=== PATIENT | female | born 1935 | race African-American/Black ===

== ENCOUNTER 2017-01-09 23:05 | Emergency (ER) | payer MEDICARE, OTHER ==
[2017-01-09] MEDS ORDERED: Morphine Sulfate 2 MG/ML SYRINGE ONE (23:31)
[2017-01-09] MEDS ORDERED: cloNIDine HCl 0.1 MG TAB ONE (23:31)
[2017-01-09] MEDS ORDERED: Ondansetron HCl/PF 4 MG/2 ML Vial ONE (23:31)
[2017-01-09] MEDS ORDERED: Sodium Chloride 0.9% 500 ML ONE (23:31)
[2017-01-09 23:58] LABS: #Basophils 0.1 thou/uL (0.0-0.2); #Lymphocytes 2.4 thou/uL (1.20-3.40); #Monocytes 0.5 thou/uL (0.11-0.59); #Neutrophils 7.1 thou/uL (1.40-6.50); %Basophils 0.6 % (0.0-1.0); %Eosinophils 0.5 % (0.0-10.0); %Lymphocytes 23.4 % (21.0-51.0); %Monocytes 5.3 % (0.0-10.0); %Neutrophils 70.2 % (42.0-75.0); Hemoglobin 12.2 g/dL (12.0-16.0); Hypochromia SLIGHT = 6-15 cells (100X) (0-5/hpf); MDiff Complete? YES; Mean Corpuscular HGB CONC 30.1 g/dL (32.0-36.0); Mean Corpuscular Hemoglobin 22.5 pg (27.0-31.0); Mean Corpuscular Volume 74.8 fl (81.0-99.0); Mean Platelet Volume 8.8 fL (7.4-10.4); Microcytosis MODERATE=15-30 cells (100X) (0-5/hpf); PLT Morphology Comment Appears Adequate; Platelet Count 222 thou/uL (130-400); RBC Distribution Width 14.6 % (11.5-14.5); Red Blood Cell (RBC) Count 5.44 mill/uL (4.20-5.40); White Blood Cell (WBC) Count 10.1 thou/uL (4.8-10.8)
[2017-01-10] LABS: ALT (SGPT) 15 U/L (8-55); AST (SGOT) 20 U/L (5-34); Albumin 4.3 g/dL (3.4-4.8); Alkaline Phosphatase 94 U/L (40-150); Anion Gap 18 mmol/L (10-20); BUN (Urea Nitrogen) 35 mg/dL (9.8-20.1); Bilirubin, Total 0.4 mg/dL (0.2-1.2); Calc. Creatinine Clearance 0 mL/min (70-130); Calcium 10.4 mg/dL (7.8-10.44); Carbon Dioxide 21 mmol/L (23-31); Chloride 101 mmol/L (98-107); Estimated GFR-MDRD 55; Globulin 3.5 g/dL (2.4-3.5); Glucose 129 mg/dL (83-110); Lipase 12 U/L (8-78); Potassium 4.3 mmol/L (3.5-5.1); Protein, Total 7.8 g/dL (6.0-8.3); Sodium 136 mmol/L (136-145)
--- NOTE | 2017-01-10 00:12 | CT ---
EXAM: NONCONTRAST HEAD CT 01/09/17 HISTORY: Headache. COMPARISON: None. TECHNIQUE: Noncontrast head CT is performed from skull base to skull vertex. FINDINGS: No parenchymal hemorrhage. No extra-axial hematoma. No midline shift. Basilar cisterns are patent. Age appropriate atrophy. Cortical anaya-white matter differentiation is preserved. White matter hypodensities involving the bilateral coronal radiata and centrum semiovale are nonspec ific and are presumed to be due to chronic small vessel ischemic changes. Adequate aeration of the sinuses and mastoid air cells. There is cavernous carotid atherosclerosis. Calvarium is intact. IMPRESSION: No acute intracranial process. POS: [facility]
[2017-01-10 00:54] LABS: Bilirubin Negative (Negative); Blood, Urine Negative (Negative); Clarity Clear (Clear); Glucose, Urine (Dipstick) Negative (Negative); Leukocyte Trace (Negative); Nitrite Negative (Negative); Protein, Urine (Dipstick) Negative (Neg-Trace); Specific Gravity, Urine 1.015 (1.005-1.030); Urobilinogen 0.2 mg/dL (0.2-1.0)
[2017-01-10 00:58] LABS: RBC/HPF None Seen HPF (0-3); WBC/HPF 0-3 HPF (0-3)
[2017-01-10 00:59] LABS: Bacteria/HPF None Seen HPF (None Seen)
[2017-01-10] MEDS ORDERED: Ibuprofen 200 MG TAB ONE (01:02)
[2017-01-10] MEDS ORDERED: cloNIDine HCl 0.1 MG TAB ONE (01:02)
[2017-01-10] MEDS ORDERED: Ondansetron ODT 4 MG TAB ONE (02:08)
== END 2017-01-10 02:15 | disposition home or self-care (01) ==
LOC: NAV ERS 23:05
DX: I10 Essential (primary) hypertension (principal); E03.9 Hypothyroidism, unspecified; I48.91 Unspecified atrial fibrillation; K21.9 Gastro-esophageal reflux disease without esophagitis; E78.5 Hyperlipidemia, unspecified; M19.90 Unspecified osteoarthritis, unspecified site; J45.909 Unspecified asthma, uncomplicated; F41.9 Anxiety disorder, unspecified; F32.9 Major depressive disorder, single episode, unspecified; Z79.82 Long term (current) use of aspirin; Z79.899 Other long term (current) drug therapy
CPT/HCPCS: 70450; 80053; 81003; 81015; 83690; 85025; 96361; 96374; 96375; J2270; J2405; J7050; Q0162

== ENCOUNTER 2017-08-04 12:47 | Outpatient (CLI) | payer MEDICARE, OTHER ==
--- NOTE | 2017-08-04 13:45 | RAD ---
LEFT HIP TWO VIEWS: HISTORY: Arthritis. Left hip pain. FINDINGS: There is joint space narrowing, osteophytosis, and subchondral sclerosis. Mild irregularity of the a rticular surface of the femoral head is apparent. No acute fracture, dislocation, or aggressive osse ous erosions. IMPRESSION: Moderate to severe osteoarthritic changes, left hip. POS: [facility]
== END 2017-08-04 12:48 | disposition home or self-care (01) ==
LOC: NAV RAD 12:47
PROVIDERS: ATTEND Internal Medicine
DX: M05.741 Rheumatoid arthritis with rheumatoid factor of right hand without organ or systems involvement (principal); M16.12 Unilateral primary osteoarthritis, left hip

== ENCOUNTER 2017-12-13 12:48 | Outpatient (CLI) | payer MEDICARE, OTHER ==
--- NOTE | 2017-12-13 14:44 | RAD ---
THREE VIEWS LUMBAR SPINE: HISTORY: Low back pain radiating down to hip. FINDINGS: AP, lateral, and coned-down views of lumbar spine obtained. Images demonstrate disk space height loss with anterior osteophytes involving the T12-L1, L1-2, L2-3 levels. There is retrolisthesis of L3 on L4. Disk space height loss and vacuum disk changes are als o seen at L3-4. Vacuum disk changes are also seen at L5-S1. The patient has had extensive L4 and L5 laminectomies. Atherosclerosis calcification of the abdominal aorta is seen. Also noted are bilateral hip degenerative changes with articulating cartilage loss bilaterally with s ubchondral cysts seen in both femoral heads. IMPRESSION: Multilevel lumbar degenerative changes with no evidence of acute lumbar spine abnormality seen. POS: [facility]
== END 2017-12-13 12:49 | disposition home or self-care (01) ==
LOC: NAV RAD 12:48
PROVIDERS: ATTEND Internal Medicine
DX: M47.896 Other spondylosis, lumbar region (principal)
CPT/HCPCS: 72100

== ENCOUNTER 2018-06-29 11:39 | Emergency (ER) | payer MEDICARE, OTHER ==
[2018-06-29 12:26] LABS: Anion Gap 16 mmol/L (10-20); BUN (Urea Nitrogen) 17 mg/dL (9.8-20.1); Calc. Creatinine Clearance 0 mL/min (70-130); Calcium 10.5 mg/dL (7.8-10.44); Carbon Dioxide 23 mmol/L (23-31); Chloride 103 mmol/L (98-107); Estimated GFR-MDRD 67; Glucose 143 mg/dL (83-110); Potassium 3.9 mmol/L (3.5-5.1); Sodium 138 mmol/L (136-145)
== END 2018-06-29 12:52 | disposition home or self-care (01) ==
LOC: NAV ERS 11:39
DX: I10 Essential (primary) hypertension (principal); I48.91 Unspecified atrial fibrillation; E03.9 Hypothyroidism, unspecified; K21.9 Gastro-esophageal reflux disease without esophagitis; M19.90 Unspecified osteoarthritis, unspecified site; F41.9 Anxiety disorder, unspecified; F32.9 Major depressive disorder, single episode, unspecified; Z86.718 Personal history of other venous thrombosis and embolism; Z79.891 Long term (current) use of opiate analgesic; Z79.1 Long term (current) use of non-steroidal anti-inflammatories (NSAID); Z79.899 Other long term (current) drug therapy; Z79.82 Long term (current) use of aspirin
CPT/HCPCS: 80048; 84484; 93005

== ENCOUNTER 2018-07-15 13:48 | Observation (INO) | payer MEDICARE, OTHER ==
[2018-07-15] MEDS ORDERED: [UNRECOGNIZED DRUG - OTHER] PO PRN (14:42)
[2018-07-15 16:13] LABS: #Basophils 0.1 thou/uL (0.0-0.2); #Eosinphils 0.2 thou/uL (0.0-0.7); #Monocytes 0.6 thou/uL (0.11-0.59); #Neutrophils 5.3 thou/uL (1.40-6.50); %Basophils 1.2 % (0.0-1.0); %Eosinophils 2.6 % (0.0-10.0); %Lymphocytes 32.3 % (21.0-51.0); %Monocytes 6.8 % (0.0-10.0); %Neutrophils 57.1 % (42.0-75.0); Hemoglobin 13.2 g/dL (12.0-16.0); Mean Corpuscular HGB CONC 29.8 g/dL (32.0-36.0); Mean Corpuscular Hemoglobin 23.1 pg (27.0-31.0); Mean Corpuscular Volume 77.6 fL (78.0-98.0); Mean Platelet Volume 8.4 fL (7.4-10.4); Platelet Count 248 thou/uL (130-400); RBC Distribution Width 13.3 % (11.5-14.5); Red Blood Cell (RBC) Count 5.73 mill/uL (4.20-5.40); White Blood Cell (WBC) Count 9.2 thou/uL (4.8-10.8)
[2018-07-15] MEDS: HYDROcodone/Acetaminophen 10/325 mg Tablet PO PRN (16:25)
[2018-07-15] MEDS: cloNIDine 0.1 MG TAB PO PRN (17:28)
[2018-07-15 18:04] LABS: ALT (SGPT) 15 U/L (8-55); AST (SGOT) 22 U/L (5-34); Albumin 4.4 g/dL (3.4-4.8); Alkaline Phosphatase 107 U/L (40-150); Anion Gap 20 mmol/L (10-20); BUN (Urea Nitrogen) 19 mg/dL (9.8-20.1); Bilirubin, Total 0.6 mg/dL (0.2-1.2); Calc. Creatinine Clearance 65 mL/min (70-130); Calcium 10.2 mg/dL (7.8-10.44); Carbon Dioxide 20 mmol/L (23-31); Chloride 104 mmol/L (98-107); Estimated GFR-MDRD 66; Globulin 3.3 g/dL (2.4-3.5); Glucose 100 mg/dL (83-110); Potassium 5.9 mmol/L (3.5-5.1); Protein, Total 7.7 g/dL (6.0-8.3); Sodium 138 mmol/L (136-145)
[2018-07-15] MEDS ORDERED: Cyclobenzaprine 10 MG TAB PO PRN (18:07)
[2018-07-15] MEDS ORDERED: Montelukast Sodium 10 mg Tablet PO PRN (18:07)
[2018-07-15] MEDS ORDERED: Nitroglycerin 0.4 MG TAB (25 Tab Bottle) SL PRN (18:07)
[2018-07-15] MEDS ORDERED: DICLOFENAC SODIUM 1% TOP PRN (18:07)
[2018-07-15 18:27] VITALS: BMI 33.0
[2018-07-15] MEDS: Temazepam 15 MG CAP PO SCH (21:46)
[2018-07-15] MEDS: Ibuprofen 200 MG TAB PO SCH (21:46)
[2018-07-15 22:27] LABS: Bilirubin Negative (Negative); Blood, Urine Trace (Negative); Clarity Clear (Clear); Glucose, Urine (Dipstick) Negative (Negative); Leukocyte Negative (Negative); Nitrite Negative (Negative); Protein, Urine (Dipstick) Negative (Neg-Trace); Urobilinogen 0.2 mg/dL (0.2-1.0); pH, Urine 5.5 (5.0-9.0)
[2018-07-15 22:39] LABS: Bacteria/HPF None Seen HPF (None Seen); RBC/HPF 0-3 HPF (0-3); WBC/HPF None Seen HPF (0-3)
[2018-07-16] MEDS: HYDROcodone/Acetaminophen 10/325 mg Tablet PO PRN ×2 (02:49→17:45)
[2018-07-16] MEDS ORDERED: Fluticasone Propionate Nasal Spray 16 gm Bottle NASAL SCH (09:00)
[2018-07-16] MEDS ORDERED: Latanoprost 0.005% Ophth Soln 2.5 ml Bottle EA EYE SCH ×2 (09:00→21:00)
[2018-07-16] MEDS ORDERED: Nebivolol HCl 2.5 MG TAB PO SCH (09:00)
--- NOTE | 2018-07-16 09:25 | PRG ---
DATE OF SERVICE: 07/16/2018 Ms. Peoples is a very pleasant 83-year-old black female, who was seen for evaluation of severe intractable back pain. She was admitted to the hospital with also blood pressure uncontrolled. Apparently, her back has been bothering for several days, but has gotten increasingly worse, where she states she just cannot stand it anymore. She was evaluated, admitted to the hospital under observations for control of her blood pressure and her back pain. SUBJECTIVE: The patient states she feels much better this morning. Her back pain is somewhat better and she has significant relief. She is not completely well and her blood pressure is much improved. OBJECTIVE: VITAL SIGNS: This morning reveal, blood pressure 145/64, last night it was 208/104; pulse 70 to 86, respirations 18 to 19, O2 saturation 98% to 99%, T-max 98.3. GENERAL: This is a well-developed, well-nourished, very pleasant black female, in no apparent distress at this time. HEENT: Reveals normocephalic and nontraumatic cranium. The pupils were equally round and reactive. Extraocular movements are intact. Nose and throat are slightly dry, but clear. NECK: Supple without masses, nodes, or bruits. CHEST: Clear to auscultation. No rales or rhonchi. No wheezes are heard. HEART: Reveals a regular rate and rhythm without murmurs, gallops, or rubs. ABDOMEN: Soft, nontender without organomegaly. Normal bowel sounds are noted. No rebound or guarding is noted. : Exam is deferred. EXTREMITIES: Revealed no clubbing, cyanosis, or edema. NEUROLOGIC: The patient is oriented to person, place, and time. ASSESSMENT: 1. Hypertension, out of control. 2. Severe intractable back pain. 3. Rheumatoid arthritis. 4. Hyperlipidemia. 5. Muscle spasms. 6. Allergic rhinitis. 7. Hypothyroidism. 8. Osteoarthritis. 9. Pain management. PLAN: The patient will continue present course of therapy. If she continues to do well, blood pressure is under control and she has controllable back pain, we will discharge her tomorrow. Job ID: [id number]
[2018-07-16] MEDS: Multivitamin W/ Minerals 1 TAB PO SCH (09:37)
[2018-07-16] MEDS: Folic Acid 1 MG TAB PO SCH (09:37)
[2018-07-16] MEDS: Nebivolol HCl 2.5 MG TAB PO SCH ×2 (09:37→21:13)
[2018-07-16] MEDS: Ibuprofen 200 MG TAB PO SCH ×3 (09:37→21:13)
[2018-07-16] MEDS: Aspirin 81 mg Enteric Coated Tablet PO SCH (09:38)
[2018-07-16] MEDS: Meloxicam 7.5 MG TAB PO SCH (09:38)
[2018-07-16] MEDS: AZILSARTAN MEDOXOMIL PO SCH (09:40)
[2018-07-16] MEDS ORDERED: Fluticasone Propionate Nasal Spray 16 gm Bottle NASAL PRN (09:56)
[2018-07-16] MEDS ORDERED: Levothyroxine Sodium 100 MCG TAB PO SCH (10:00)
[2018-07-16] MEDS: cloNIDine 0.1 MG TAB PO PRN (17:46)
[2018-07-16] MEDS ORDERED: Atorvastatin Calcium 10 MG TAB PO SCH (21:00)
[2018-07-16] MEDS: Temazepam 15 MG CAP PO SCH (21:15)
[2018-07-17] MEDS: HYDROcodone/Acetaminophen 10/325 mg Tablet PO PRN ×2 (03:08→17:16)
[2018-07-17] MEDS ORDERED: Levothyroxine Sodium 100 MCG TAB PO SCH (06:00)
[2018-07-17] MEDS: Aspirin 81 mg Enteric Coated Tablet PO SCH (09:14)
[2018-07-17] MEDS: Multivitamin W/ Minerals 1 TAB PO SCH (09:14)
[2018-07-17] MEDS: Meloxicam 7.5 MG TAB PO SCH (09:15)
[2018-07-17] MEDS: Ibuprofen 200 MG TAB PO SCH ×2 (09:15→15:03)
[2018-07-17] MEDS: Folic Acid 1 MG TAB PO SCH (09:15)
[2018-07-17] MEDS: AZILSARTAN MEDOXOMIL PO SCH (09:17)
[2018-07-17] MEDS: Nebivolol HCl 2.5 MG TAB PO SCH (09:26)
[2018-07-17 17:16] VITALS: BP 139/64; TEMP 97.4
[2018-07-17] MEDS: cloNIDine 0.1 MG TAB PO PRN (17:18)
--- NOTE | 2018-07-18 07:14 | DIS ---
DATE OF ADMISSION: 07/15/2018 DATE OF DISCHARGE: 07/17/2018 SUBJECTIVE: This is an 83-year-old black female, who was admitted to [facility] for intractable back pain. She was admitted to the hospital and also noted to have uncontrolled blood pressure. Apparently, she ran out of her clonidine. She was admitted and placed on [place] and actually did very well. Her clonidine was one pill every evening and that has done very well. She has reached maximum observation benefit and is ready for discharge today. The patient does not have the ability to get her medications today, so she states she will stay here until about 6 p.m. At that time, she will get her clonidine and her pain medication, and her medicines both clonidine and her [place] have been sent via [facility] to [facility]. Her daughter can pick it up on Wednesday morning. Subjectively, the patient states she actually feels much better this morning. Her blood pressure is excellent. PHYSICAL EXAMINATION: VITAL SIGNS: Reveal blood pressure this morning 124/58, pulse 73 to 82, respirations 18, O2 saturation 96% to 98%, T-max 98.0. GENERAL: This is a well-developed, well-nourished, very pleasant, black female, in no apparent distress at this time. HEENT: Reveals normocephalic and nontraumatic cranium. Pupils are equally, round, and reactive. Extraocular movements are intact. Nose and throat are slightly dry. NECK: Supple without masses, nodes, or bruits. CHEST: Clear to auscultation. No rales, rhonchi, wheezes, or cough is heard. HEART: Reveals a regular rate and rhythm without murmurs, gallops, or rubs. ABDOMEN: Soft, nontender without organomegaly. Normal bowel sounds are noted in all four quadrants. : Deferred. EXTREMITIES: Reveal no clubbing, cyanosis, or edema. NEUROLOGIC: The patient is oriented to person, place, and time. The patient's daughter is in the room and she did agree that she would like her mom to stay until about 6 o'clock, so she can get her medications and eat supper and then be discharged. ASSESSMENT: 1. Hypertension, much improved control with the addition of clonidine 0.1 mg every evening. 2. Intractable back pain, much improved with the addition of [place] 10 one pill twice a day. 3. Rheumatoid arthritis. 4. Hyperlipidemia. 5. Muscle spasm. 6. Allergic rhinitis. 7. Hypothyroidism. 8. Osteoarthritis. 9. Pain management. PLAN: The patient has actually done very well. She is being discharged from observation at this time. She will contact Dr. Benítez's office. Dr. Benítez was indicated that he has a referral in for her to go see a Pain Management doctor. She will continue to follow up with Dr. Benítez. I did send a prescription for [place] , #14 pills one every 12 hours p.r.n. severe back pain with no refills. I did send a clonidine 0.1 mg prescription to [facility] with 30 pills. The patient is to take one every afternoon when her blood pressure goes up. The patient will follow up with Dr. Benítez within a week or two. I spent more than 30 minutes discharging this patient. Job ID: [id number]
[2018-07-25] MEDS ORDERED: Methotrexate Sodium 2.5 MG TAB PO SCH (09:00)
== END 2018-07-17 16:15 | disposition home or self-care (01) ==
LOC: NAV ACUTE 13:48
PROVIDERS: ADMIT Internal Medicine; ATTEND Internal Medicine
DX: M54.9 Dorsalgia, unspecified (principal); I10 Essential (primary) hypertension; M06.9 Rheumatoid arthritis, unspecified; E78.5 Hyperlipidemia, unspecified; E03.9 Hypothyroidism, unspecified; M19.90 Unspecified osteoarthritis, unspecified site; J30.9 Allergic rhinitis, unspecified; Z88.0 Allergy status to penicillin; Z79.1 Long term (current) use of non-steroidal anti-inflammatories (NSAID); Z79.899 Other long term (current) drug therapy
CPT/HCPCS: 36415; 80053; 81001; 85025; G0378; G0379

== ENCOUNTER 2018-10-26 12:03 | Emergency (ER) | payer MEDICARE, OTHER ==
[2018-10-26 12:49] LABS: #Basophils 0.1 thou/uL (0.0-0.2); #Eosinphils 0.3 thou/uL (0.0-0.7); #Lymphocytes 2.7 thou/uL (1.20-3.40); #Monocytes 0.7 thou/uL (0.11-0.59); #Neutrophils 3.8 thou/uL (1.40-6.50); %Basophils 1.4 % (0.0-1.0); %Eosinophils 3.4 % (0.0-10.0); %Lymphocytes 35.9 % (21.0-51.0); %Monocytes 9.4 % (0.0-10.0); %Neutrophils 49.9 % (42.0-75.0); ALT (SGPT) 12 U/L (8-55); AST (SGOT) 21 U/L (5-34); Albumin 4.1 g/dL (3.4-4.8); Alkaline Phosphatase 114 U/L (40-150); Anion Gap 15 mmol/L (10-20); BUN (Urea Nitrogen) 25 mg/dL (9.8-20.1); Bilirubin, Total 0.4 mg/dL (0.2-1.2); Calc. Creatinine Clearance 0 mL/min (70-130); Carbon Dioxide 22 mmol/L (23-31); Chloride 106 mmol/L (98-107); Estimated GFR-MDRD 58; Globulin 3.3 g/dL (2.4-3.5); Glucose 123 mg/dL (83-110); Hemoglobin 12.5 g/dL (12.0-16.0); Mean Corpuscular HGB CONC 29.4 g/dL (32.0-36.0); Mean Corpuscular Hemoglobin 22.8 pg (27.0-31.0); Mean Corpuscular Volume 77.5 fL (78.0-98.0); Mean Platelet Volume 9.2 fL (7.4-10.4); Platelet Count 271 thou/uL (130-400); Potassium 4.8 mmol/L (3.5-5.1); Protein, Total 7.4 g/dL (6.0-8.3); Red Blood Cell (RBC) Count 5.48 mill/uL (4.20-5.40); Sodium 138 mmol/L (136-145); White Blood Cell (WBC) Count 7.6 thou/uL (4.8-10.8)
[2018-10-26 12:55] LABS: Hypochromia SLIGHT = 6-15 cells (100X) (0-5/hpf); MDiff Complete? YES; Platelet Morphology Comment Appears Adequate
[2018-10-26] MEDS ORDERED: cloNIDine 0.2 MG TAB ONE (13:02)
--- NOTE | 2018-10-26 13:02 | RAD ---
Chest one view HISTORY: Dyspnea. FINDINGS: Cardiac silhouette is unremarkable. Pulmonary vasculature upper limits of normal. Mediastin um is midline. No lobar consolidation or evidence of pneumothorax. monitoring analyst leads overlie the chest. There are degenerative changes of the right shoulder. IMPRESSION: No active cardiopulmonary abnormalities are demonstrated.
[2018-10-26 15:27] LABS: Troponin I Less than 0.010 ng/mL (< 0.028)
== END 2018-10-26 16:13 | disposition home or self-care (01) ==
LOC: NAV ERS 12:03
DX: I16.0 Hypertensive urgency (principal); I25.10 Atherosclerotic heart disease of native coronary artery without angina pectoris; I48.91 Unspecified atrial fibrillation; E03.9 Hypothyroidism, unspecified; K21.9 Gastro-esophageal reflux disease without esophagitis; D50.9 Iron deficiency anemia, unspecified; E78.5 Hyperlipidemia, unspecified; I10 Essential (primary) hypertension; J45.909 Unspecified asthma, uncomplicated; Z86.718 Personal history of other venous thrombosis and embolism; F41.9 Anxiety disorder, unspecified; F32.9 Major depressive disorder, single episode, unspecified; Z79.51 Long term (current) use of inhaled steroids; Z79.82 Long term (current) use of aspirin; Z79.899 Other long term (current) drug therapy
CPT/HCPCS: 36415; 71045; 80053; 83880; 84484; 85025; 93005

== ENCOUNTER 2018-12-20 12:26 | Outpatient (CLI) | payer MEDICARE, OTHER ==
--- NOTE | 2018-12-20 13:42 | ULT ---
CAROTID DOPPLER: INDICATION: Carotid bruit on the left. FINDINGS: Ultrasound Doppler study is performed of the extracranial carotid arteries. Color Doppler with spect ral analysis and velocity recordings obtained. FINDINGS: The ultrasound images show echogenic plaque in both bulbs and proximal ICAs. Velocities are increased in the right ICA at 166 cm/s systolic. Left ICA velocities are upper normal at 109 cm/s systolic. Vertebral show antegrade flow. IMPRESSION: 1. Moderate echogenic plaque in both bulb regions. 2. Evidence of hemodynamically significant stenosis in the proximal right internal carotid artery. Recommend further evaluation with CTA neck for better characterization. POS: [facility]
== END 2018-12-20 12:27 | disposition home or self-care (01) ==
LOC: NAV ULT 12:26
PROVIDERS: ATTEND Internal Medicine
DX: R09.89 Other specified symptoms and signs involving the circulatory and respiratory systems (principal); I65.23 Occlusion and stenosis of bilateral carotid arteries
CPT/HCPCS: 93880

== ENCOUNTER 2018-12-30 09:08 | Outpatient (CLI) | payer MEDICARE, OTHER ==
[~2018-12-30 09:08] MED LIST: Iopamidol 300 61% 100 ML VIAL FS ONE
--- NOTE | 2018-12-30 12:02 | CT ---
NONCONTRAST HEAD CT CT ANGIOGRAM OF THE HEAD: HISTORY: Carotid occlusion. COMPARISON: None. TECHNIQUE: CT angiogram of the head is performed in the axial plane. Three-dimensional reformatted images are wilde bmitted for dictation. Noncontrast head CT is performed in the axial plane. FINDINGS: NONCONTRAST HEAD CT: No parenchymal hemorrhage. No extra-axial hematoma. No midline shift. Basilar cisterns are patent. Br ain volume, age-appropriate. Cortical anaya-white white matter differentiation is preserved. No hydrocephalus. White matter hypodensities due to chronic small vessel ischemic change. Calvarium is intact. Adequate aeration of the sinuses and mastoid air cells. No pathologic enhancement of the brain parenchyma. CT ANGIOGRAM: The visualized distal cervical internal carotid arteries are patent and symmetric. There is atheroscl erosis in bilateral cavernous and paraclinoid segments without evidence of high-grade stenosis. Anterior circulation: Symmetric enhancement and luminal diameter of the A1 and proximal A2 segments. The right and left M1 segments have appropriate enhancement and luminal diameter. Proximal MCA branches are essentially symmetric. Posterior circulation: Atherosclerosis of both intracranial vertebral arteries. Limited evaluation of PICA artery origin. Lázaro th vertebral arteries supply a normal caliber basilar artery. Left and right P1 segments have symmetric enhancement and luminal diameter IMPRESSION: 1. No evidence of significant stenosis at the level of the z[place] of [place]. 2. Atherosclerosis involving the intracranial vertebral and carotid arteries as described above. No e vidence of associated significant stenosis beyond these areas of atherosclerotic disease. Transcribed Date/Time: 12/30/2018 12:21 PM
== END 2018-12-30 09:09 | disposition home or self-care (01) ==
LOC: NAV CT 09:08
PROVIDERS: ATTEND Internal Medicine
DX: I65.21 Occlusion and stenosis of right carotid artery (principal); I65.03 Occlusion and stenosis of bilateral vertebral arteries
CPT/HCPCS: 36415; 70496; 82565; Q9967

== ENCOUNTER 2019-04-24 10:38 | Outpatient (CLI) | payer MEDICARE, OTHER ==
--- NOTE | 2019-04-24 11:44 | ULT ---
Left lower extremity venous Doppler ultrasound: 04/24/2019 COMPARISON: None HISTORY: I82.409, acute embolism and thrombosis of unspecified deep veins of unspecified lower extrem ity, pain and swelling TECHNIQUE: Multiplanar grayscale sonographic imaging of the venous structures of the left lower extre mity obtained with color flow and spectral analysis FINDINGS: Left common femoral vein, greater saphenous vein, profunda femoral vein, femoral vein, popl iteal vein, and posterior tibial vein are patent. Normal blood flow, augmentation, and compression within the deep venous system on the left. No evidence for deep venous thrombosis. IMPRESSION: No evidence for deep venous thrombosis of the left lower extremity.
== END 2019-04-24 10:39 | disposition home or self-care (01) ==
LOC: NAV ULT 10:38
PROVIDERS: ATTEND Internal Medicine
DX: I82.409 Acute embolism and thrombosis of unspecified deep veins of unspecified lower extremity (principal)

== ENCOUNTER 2019-05-02 12:09 | Emergency (ER) | payer MEDICARE, OTHER ==
[2019-05-02] MEDS ORDERED: Sodium Chloride 0.9% 1,000 ML ONE (12:36)
[2019-05-02] MEDS ORDERED: cloNIDine 0.2 MG TAB ONE ×2 (12:36→13:51)
[2019-05-02] MEDS ORDERED: diphenhydrAMINE 50 MG/ML VIAL ONE (12:36)
[2019-05-02] MEDS ORDERED: Ondansetron ODT 4 MG TAB ONE (12:37)
[2019-05-02 13:36] LABS: #Basophils 0.1 thou/uL (0.0-0.2); #Eosinphils 0.1 thou/uL (0.0-0.7); #Lymphocytes 2.4 thou/uL (1.20-3.40); #Monocytes 0.5 thou/uL (0.11-0.59); #Neutrophils 5.1 thou/uL (1.40-6.50); %Lymphocytes 29.4 % (21.0-51.0); %Monocytes 6.1 % (0.0-10.0); %Neutrophils 62.5 % (42.0-75.0); Hemoglobin 13.2 g/dL (12.0-16.0); Mean Corpuscular HGB CONC 30.2 g/dL (32.0-36.0); Mean Corpuscular Hemoglobin 22.4 pg (27.0-31.0); Mean Corpuscular Volume 74.2 fL (78.0-98.0); Mean Platelet Volume 8.3 fL (7.4-10.4); Platelet Count 237 thou/uL (130-400); RBC Distribution Width 14.7 % (11.5-14.5); Red Blood Cell (RBC) Count 5.91 mill/uL (4.20-5.40); White Blood Cell (WBC) Count 8.2 thou/uL (4.8-10.8)
[2019-05-02 13:37] LABS: ALT (SGPT) 18 U/L (8-55); AST (SGOT) 23 U/L (5-34); Albumin 4.2 g/dL (3.4-4.8); Alkaline Phosphatase 102 U/L (40-110); Anion Gap 18 mmol/L (10-20); Anisocytosis SLIGHT = 6-15 cells (100X) (0-5/hpf); BUN (Urea Nitrogen) 27 mg/dL (9.8-20.1); Bilirubin, Total 0.9 mg/dL (0.2-1.2); Calc. Creatinine Clearance 0 mL/min (70-130); Calcium 10.3 mg/dL (7.8-10.44); Carbon Dioxide 20 mmol/L (23-31); Chloride 98 mmol/L (98-107); Estimated GFR-MDRD 54; Globulin 3.5 g/dL (2.4-3.5); Glucose 122 mg/dL (83-110); MDiff Complete? YES; Microcytosis SLIGHT = 6-15 cells (100X) (0-5/hpf); Platelet Morphology Comment Appears Adequate; Potassium 4.4 mmol/L (3.5-5.1); Protein, Total 7.7 g/dL (6.0-8.3); Sodium 132 mmol/L (136-145)
--- NOTE | 2019-05-02 13:39 | CT ---
Head CT without contrast 05/02/2019: COMPARISON: 01/09/2017 HISTORY: Migraine headaches with vomiting TECHNIQUE: Axial CT imaging at 5 mm intervals from vertex through skull base without contrast FINDINGS: The imaged paranasal sinuses and mastoid air cells are well aerated. There is atherosclerotic calcification of the distal vertebral arteries and the cavernous carotid art eries. There is no intracranial hemorrhage, midline shift, mass effect, or ventricular enlargement. No displaced calvarial fracture is noted. IMPRESSION: No intracranial hemorrhage or displaced calvarial fracture.
[2019-05-02] MEDS ORDERED: Ketorolac Tromethamine 30 MG/ML VIAL ONE (13:56)
== END 2019-05-02 14:50 | disposition home or self-care (01) ==
LOC: NAV ERS 12:09
DX: E86.9 Volume depletion, unspecified (principal); I10 Essential (primary) hypertension; R51 Headache; G43.909 Migraine, unspecified, not intractable, without status migrainosus; I49.9 Cardiac arrhythmia, unspecified; I48.91 Unspecified atrial fibrillation; E03.9 Hypothyroidism, unspecified; K21.9 Gastro-esophageal reflux disease without esophagitis; D50.9 Iron deficiency anemia, unspecified; E78.5 Hyperlipidemia, unspecified; E78.00 Pure hypercholesterolemia, unspecified; M19.90 Unspecified osteoarthritis, unspecified site; J45.909 Unspecified asthma, uncomplicated; M06.9 Rheumatoid arthritis, unspecified; F41.9 Anxiety disorder, unspecified; F32.9 Major depressive disorder, single episode, unspecified; Z79.51 Long term (current) use of inhaled steroids; Z79.82 Long term (current) use of aspirin; Z86.718 Personal history of other venous thrombosis and embolism; Z79.899 Other long term (current) drug therapy; Z95.5 Presence of coronary angioplasty implant and graft
CPT/HCPCS: 70450; 80053; 84443; 85025; 96361; 96374; 96375; J1200; J1885; J7050; Q0162

== ENCOUNTER 2021-03-06 19:17 | Emergency (ER) | payer MEDICARE, OTHER ==
[2021-03-06] MEDS ORDERED: Acetaminophen/Codeine 30-300mg Tablet ONE (20:28)
== END 2021-03-06 20:55 | disposition home or self-care (01) ==
LOC: NAV ERS 19:17
DX: M54.42 Lumbago with sciatica, left side (principal); M54.2 Cervicalgia; G89.29 Other chronic pain; I25.10 Atherosclerotic heart disease of native coronary artery without angina pectoris; I48.91 Unspecified atrial fibrillation; E03.9 Hypothyroidism, unspecified; K21.9 Gastro-esophageal reflux disease without esophagitis; D50.9 Iron deficiency anemia, unspecified; E78.5 Hyperlipidemia, unspecified; E78.00 Pure hypercholesterolemia, unspecified; M19.90 Unspecified osteoarthritis, unspecified site; J45.909 Unspecified asthma, uncomplicated; M06.9 Rheumatoid arthritis, unspecified; Z86.718 Personal history of other venous thrombosis and embolism; Z79.82 Long term (current) use of aspirin; Z79.899 Other long term (current) drug therapy
CPT/HCPCS: 99283

== ENCOUNTER 2021-03-17 16:44 | Inpatient (IN) | payer MEDICARE, OTHER ==
[2021-03-17] MEDS ORDERED: NS 0.9% w/ 20 MEQ KCL 1,000 ML ONE (17:32)
[2021-03-17 18:06] LABS: #Basophils 0.1 thou/uL (0.0-0.2); #Eosinphils 0.1 thou/uL (0.0-0.7); #Lymphocytes 1.7 thou/uL (1.20-3.40); #Monocytes 1.3 thou/uL (0.11-0.59); #Neutrophils 14.9 thou/uL (1.40-6.50); %Basophils 0.6 % (0.0-1.0); %Eosinophils 0.4 % (0.0-10.0); %Lymphocytes 9.5 % (21.0-51.0); %Monocytes 7.3 % (0.0-10.0); %Neutrophils 82.1 % (42.0-75.0); Hemoglobin 12.5 g/dL (12.0-16.0); Mean Corpuscular HGB CONC 30.4 g/dL (32.0-36.0); Mean Corpuscular Hemoglobin 22.1 pg (27.0-31.0); Mean Corpuscular Volume 72.7 fL (78.0-98.0); Platelet Count 313 thou/uL (130-400); RBC Distribution Width 13.2 % (11.5-14.5); Red Blood Cell (RBC) Count 5.65 mill/uL (4.20-5.40); White Blood Cell (WBC) Count 18.2 thou/uL (4.8-10.8)
[2021-03-17 18:38] LABS: Anisocytosis SLIGHT = 6-15 cells (100X) (0-5/hpf); Large Platelets SLIGHT; MDiff Complete? YES; Microcytosis SLIGHT = 6-15 cells (100X) (0-5/hpf); Ovalocytes SLIGHT = 2-5 cells (100X) (0-1/hpf); Platelet Morphology Comment Appears Adequate
[2021-03-17 18:42] LABS: Bilirubin Negative (Negative); Blood, Urine Negative (Negative); Clarity Slightly Cloudy (Clear); Glucose, Urine (Dipstick) Negative (Negative); Ketone, Urine Negative (Negative); Leukocyte Negative (Negative); Nitrite Negative (Negative); Protein, Urine (Dipstick) Negative (Neg-Trace); Urobilinogen 0.2 mg/dL (Less than 2)
[2021-03-17 18:47] LABS: ALT (SGPT) 20 U/L (8-55); AST (SGOT) 28 U/L (5-34); Albumin 3.1 g/dL (3.4-4.8); Alkaline Phosphatase 120 U/L (40-110); Anion Gap 21 mmol/L (10-20); BUN (Urea Nitrogen) 16 mg/dL (9.8-20.1); Bilirubin, Total 0.7 mg/dL (0.2-1.2); Calc. Creatinine Clearance 0 mL/min (70-130); Calcium 9.2 mg/dL (7.8-10.44); Carbon Dioxide 19 mmol/L (23-31); Chloride 93 mmol/L (98-107); Globulin 3.6 g/dL (2.4-3.5); Glucose 156 mg/dL (83-110); Protein, Total 6.7 g/dL (5.8-8.1); Sodium 127 mmol/L (136-145)
[2021-03-17 20:14] LABS: SARS-CoV-2 NAA Rapid Test Not Detected (NotDetected)
[2021-03-17] MEDS ORDERED: Acetaminophen/Codeine 30-300mg Tablet ONE (21:26)
[2021-03-17 22:13] VITALS: BMI 29.7
[2021-03-18 00:15] LABS: Lactic Acid 1.2 mmol/L (0.5-2.2)
[2021-03-18] MEDS: Sodium Chloride 0.9% 1,000 ML IV SCH ×3 (01:46→15:25)
[2021-03-18] MEDS: Levothyroxine Sodium 112 MCG TAB PO SCH (06:01)
[2021-03-18 08:29] LABS: ALT (SGPT) 18 U/L (8-55); AST (SGOT) 29 U/L (5-34); Albumin 2.8 g/dL (3.4-4.8); Alkaline Phosphatase 106 U/L (40-110); Anion Gap 14 mmol/L (10-20); BUN (Urea Nitrogen) 14 mg/dL (9.8-20.1); Bilirubin, Total 0.6 mg/dL (0.2-1.2); Calc. Creatinine Clearance 74 mL/min (70-130); Calcium 9.1 mg/dL (7.8-10.44); Carbon Dioxide 18 mmol/L (23-31); Chloride 104 mmol/L (98-107); Globulin 3.2 g/dL (2.4-3.5); Glucose 114 mg/dL (83-110); Potassium 5.4 mmol/L (3.5-5.1); Sodium 131 mmol/L (136-145)
[2021-03-18] MEDS: Acetaminophen/Codeine 30-300mg Tablet PO PRN ×3 (08:38→20:32)
[2021-03-18] MEDS: Aspirin Chewable 81 MG TAB PO SCH (08:39)
[2021-03-18] MEDS: Latanoprost 0.005% Ophth Soln 2.5 ml Bottle EA EYE SCH ×2 (08:39→20:33)
[2021-03-18] MEDS: Losartan Potassium 50 MG TAB PO SCH (08:40)
[2021-03-18] MEDS: Multivitamin W/ Minerals 1 TAB PO SCH (08:40)
[2021-03-18] MEDS: Nebivolol HCl 2.5 MG TAB PO SCH ×2 (08:40→20:32)
[2021-03-18] MEDS: cloNIDine 0.1 MG TAB PO PRN (16:47)
[2021-03-19] MEDS: Sodium Chloride 0.9% 1,000 ML IV SCH ×2 (01:20→11:02)
[2021-03-19] MEDS: cloNIDine 0.1 MG TAB PO PRN ×2 (04:08→17:20)
[2021-03-19] MEDS: Levothyroxine Sodium 112 MCG TAB PO SCH (06:05)
[2021-03-19 06:37] LABS: Anion Gap 12 mmol/L (10-20); BUN (Urea Nitrogen) 9 mg/dL (9.8-20.1); Calc. Creatinine Clearance 85 mL/min (70-130); Calcium 8.5 mg/dL (7.8-10.44); Carbon Dioxide 20 mmol/L (23-31); Chloride 101 mmol/L (98-107); Glucose 125 mg/dL (83-110); Sodium 128 mmol/L (136-145)
[2021-03-19 06:48] LABS: Anisocytosis SLIGHT = 6-15 cells (100X) (0-5/hpf); Hypochromia SLIGHT = 6-15 cells (100X) (0-5/hpf); MDiff Complete? YES; Mean Corpuscular HGB CONC 29.9 g/dL (32.0-36.0); Mean Corpuscular Volume 73.7 fL (78.0-98.0); Mean Platelet Volume 8.2 fL (7.4-10.4); Microcytosis SLIGHT = 6-15 cells (100X) (0-5/hpf); Ovalocytes SLIGHT = 2-5 cells (100X) (0-1/hpf); Platelet Count 273 thou/uL (130-400); Platelet Morphology Comment Appears Adequate; RBC Distribution Width 13.4 % (11.5-14.5); Red Blood Cell (RBC) Count 4.54 mill/uL (4.20-5.40); White Blood Cell (WBC) Count 17.5 thou/uL (4.8-10.8)
[2021-03-19] MEDS: Multivitamin W/ Minerals 1 TAB PO SCH (08:54)
[2021-03-19] MEDS: Aspirin Chewable 81 MG TAB PO SCH (08:54)
[2021-03-19] MEDS: Nebivolol HCl 2.5 MG TAB PO SCH ×2 (08:54→20:36)
[2021-03-19] MEDS: Losartan Potassium 50 MG TAB PO SCH (08:54)
[2021-03-19] MEDS: Latanoprost 0.005% Ophth Soln 2.5 ml Bottle EA EYE SCH ×2 (08:54→20:36)
[2021-03-19] MEDS: HYDROcodone/Acetaminophen 5/325 mg Tablet PO PRN ×2 (09:23→21:14)
[2021-03-19] MEDS ORDERED: Polyethylene Glycol 3350 17 GM Packet PO PRN (09:49)
[2021-03-19] MEDS ORDERED: Ondansetron ODT 4 MG TAB PO PRN (09:49)
[2021-03-19 10:28] LABS: Bilirubin Negative (Negative); Blood, Urine Negative (Negative); Clarity Clear (Clear); Glucose, Urine (Dipstick) Negative (Negative); Ketone, Urine Negative (Negative); Leukocyte Negative (Negative); Nitrite Negative (Negative); Protein, Urine (Dipstick) Negative (Neg-Trace); Urobilinogen 0.2 mg/dL (Less than 2); pH, Urine 5.5 (5.0-9.0)
[2021-03-19 10:30] LABS: Bacteria/HPF None Seen HPF (None Seen); RBC/HPF None Seen HPF (0-3); WBC/HPF None Seen HPF (0-3)
[2021-03-19] MEDS: Acetaminophen 325 MG TAB PO PRN (17:21)
[2021-03-19] MEDS: Sulfameth/Trimethoprim DS 800-160mg TAB PO SCH (20:36)
[2021-03-20] MEDS: HYDROcodone/Acetaminophen 5/325 mg Tablet PO PRN ×3 (03:02→20:33)
[2021-03-20] MEDS: cloNIDine 0.1 MG TAB PO PRN (03:31)
[2021-03-20] MEDS: Levothyroxine Sodium 112 MCG TAB PO SCH (05:27)
[2021-03-20 07:03] LABS: Anion Gap 13 mmol/L (10-20); BUN (Urea Nitrogen) 10 mg/dL (9.8-20.1); Calc. Creatinine Clearance 84 mL/min (70-130); Calcium 8.7 mg/dL (7.8-10.44); Carbon Dioxide 18 mmol/L (23-31); Chloride 102 mmol/L (98-107); Glucose 110 mg/dL (83-110); Potassium 4.9 mmol/L (3.5-5.1); Sodium 128 mmol/L (136-145)
[2021-03-20 07:13] LABS: #Basophils 0.1 thou/uL (0.0-0.2); #Eosinphils 0.2 thou/uL (0.0-0.7); #Lymphocytes 2.1 thou/uL (1.20-3.40); #Monocytes 1.3 thou/uL (0.11-0.59); #Neutrophils 11.4 thou/uL (1.40-6.50); %Basophils 0.5 % (0.0-1.0); %Eosinophils 1.2 % (0.0-10.0); %Monocytes 8.3 % (0.0-10.0); %Neutrophils 75.9 % (42.0-75.0); Hemoglobin 9.8 g/dL (12.0-16.0); Mean Corpuscular HGB CONC 29.8 g/dL (32.0-36.0); Mean Corpuscular Hemoglobin 22.2 pg (27.0-31.0); Mean Corpuscular Volume 74.6 fL (78.0-98.0); Mean Platelet Volume 8.4 fL (7.4-10.4); Platelet Count 238 thou/uL (130-400); RBC Distribution Width 13.6 % (11.5-14.5); Red Blood Cell (RBC) Count 4.42 mill/uL (4.20-5.40)
[2021-03-20 07:15] LABS: Anisocytosis SLIGHT = 6-15 cells (100X) (0-5/hpf); Hypochromia SLIGHT = 6-15 cells (100X) (0-5/hpf); MDiff Complete? YES; Microcytosis SLIGHT = 6-15 cells (100X) (0-5/hpf); Ovalocytes SLIGHT = 2-5 cells (100X) (0-1/hpf); Platelet Morphology Comment Appears Adequate
[2021-03-20] MEDS: Latanoprost 0.005% Ophth Soln 2.5 ml Bottle EA EYE SCH ×2 (08:36→20:33)
[2021-03-20] MEDS: Aspirin Chewable 81 MG TAB PO SCH (08:37)
[2021-03-20] MEDS: Losartan Potassium 50 MG TAB PO SCH (08:37)
[2021-03-20] MEDS: Multivitamin W/ Minerals 1 TAB PO SCH (08:37)
[2021-03-20] MEDS: Nebivolol HCl 2.5 MG TAB PO SCH ×2 (08:37→20:33)
[2021-03-20] MEDS: Sulfameth/Trimethoprim DS 800-160mg TAB PO SCH ×2 (08:37→20:33)
[2021-03-20] MEDS ORDERED: Fleet Enema 133 ML BOT PR PRN (09:30)
[2021-03-20] MEDS: Acetaminophen 325 MG TAB PO PRN (14:58)
[2021-03-21] MEDS: HYDROcodone/Acetaminophen 5/325 mg Tablet PO PRN (02:26)
[2021-03-21] MEDS ORDERED: ALPRAZolam 0.5 MG TAB PO SCH (03:30)
[2021-03-21] MEDS: Levothyroxine Sodium 112 MCG TAB PO SCH (05:54)
[2021-03-21 07:23] LABS: Anion Gap 12 mmol/L (10-20); BUN (Urea Nitrogen) 12 mg/dL (9.8-20.1); Calc. Creatinine Clearance 69 mL/min (70-130); Carbon Dioxide 20 mmol/L (23-31); Chloride 100 mmol/L (98-107); Glucose 100 mg/dL (83-110); Potassium 5.2 mmol/L (3.5-5.1); Sodium 127 mmol/L (136-145)
[2021-03-21] MEDS: Latanoprost 0.005% Ophth Soln 2.5 ml Bottle EA EYE SCH (09:11)
[2021-03-21] MEDS: Acetaminophen 325 MG TAB PO PRN (09:11)
[2021-03-21] MEDS: Multivitamin W/ Minerals 1 TAB PO SCH (09:12)
[2021-03-21] MEDS: Nebivolol HCl 2.5 MG TAB PO SCH (09:12)
[2021-03-21] MEDS: Losartan Potassium 50 MG TAB PO SCH (09:12)
[2021-03-21] MEDS: Aspirin Chewable 81 MG TAB PO SCH (09:12)
[2021-03-21] MEDS: Sulfameth/Trimethoprim DS 800-160mg TAB PO SCH (09:12)
[2021-03-21 11:45] VITALS: TEMP 98.5
[2021-03-21 12:09] VITALS: BP 118/71
== END 2021-03-21 14:39 | disposition home or self-care (01) | DRG 641 ==
LOC: NAV ERS 16:44 → NAV ACUTE 21:10 → OBSVTOIN 21:10
PROVIDERS: ADMIT Family Medicine; ATTEND Family Medicine
DX: E87.1 Hypo-osmolality and hyponatremia (principal); E87.5 Hyperkalemia; I25.10 Atherosclerotic heart disease of native coronary artery without angina pectoris; I48.91 Unspecified atrial fibrillation; M06.9 Rheumatoid arthritis, unspecified; J45.909 Unspecified asthma, uncomplicated; E03.9 Hypothyroidism, unspecified; K21.9 Gastro-esophageal reflux disease without esophagitis; Z20.822 Contact with and (suspected) exposure to COVID-19; N18.9 Chronic kidney disease, unspecified; I12.9 Hypertensive chronic kidney disease with stage 1 through stage 4 chronic kidney disease, or unspecified chronic kidney disease; D72.829 Elevated white blood cell count, unspecified; R50.9 Fever, unspecified; Z98.890 Other specified postprocedural states; Z88.0 Allergy status to penicillin; Z79.82 Long term (current) use of aspirin
CPT/HCPCS: 36415; 51701; 71045; 74018; 80048; 80053; 81001; 81003; 83605; 85025; 85652; 86140; 87040; 87077; 87086; 87186; 93005; G0378; J3480; J7050; U0002

== ENCOUNTER 2021-03-25 14:31 | Observation (INO) | payer MEDICARE, OTHER ==
[2021-03-25] MEDS ORDERED: Ondansetron PF 4 MG/2 ML Vial ONE (14:45)
[2021-03-25 15:19] LABS: #Lymphocytes 2.2 thou/uL (1.20-3.40); #Monocytes 1.3 thou/uL (0.11-0.59); #Neutrophils 19.1 thou/uL (1.40-6.50); %Basophils 0.2 % (0.0-1.0); %Eosinophils 0.1 % (0.0-10.0); %Lymphocytes 9.9 % (21.0-51.0); %Monocytes 5.9 % (0.0-10.0); %Neutrophils 83.9 % (42.0-75.0); Hemoglobin 11.6 g/dL (12.0-16.0); Mean Corpuscular HGB CONC 29.8 g/dL (32.0-36.0); Mean Corpuscular Hemoglobin 21.8 pg (27.0-31.0); Mean Platelet Volume 7.5 fL (7.4-10.4); Platelet Count 468 thou/uL (130-400); RBC Distribution Width 13.4 % (11.5-14.5); Red Blood Cell (RBC) Count 5.31 mill/uL (4.20-5.40); White Blood Cell (WBC) Count 22.7 thou/uL (4.8-10.8)
[2021-03-25 15:38] LABS: Anion Gap 18 mmol/L (10-20); BUN (Urea Nitrogen) 12 mg/dL (9.8-20.1); Calc. Creatinine Clearance 0 mL/min (70-130); Carbon Dioxide 17 mmol/L (23-31); Chloride 97 mmol/L (98-107); Potassium 5.5 mmol/L (3.5-5.1); Sodium 126 mmol/L (136-145)
[2021-03-25 15:39] LABS: ALT (SGPT) 22 U/L (8-55); AST (SGOT) 41 U/L (5-34); Albumin 3.1 g/dL (3.4-4.8); Alkaline Phosphatase 180 U/L (40-110); Bilirubin, Total 0.6 mg/dL (0.2-1.2); CK (CPK) 44 U/L (29-168); Calcium 9.4 mg/dL (7.8-10.44); Globulin 3.4 g/dL (2.4-3.5); Glucose 157 mg/dL (83-110); Magnesium 1.6 mg/dL (1.6-2.6); Protein, Total 6.5 g/dL (5.8-8.1)
[2021-03-25 16:00] LABS: CKMB 1.8 ng/mL (0-6.6)
[2021-03-25] MEDS ORDERED: Sodium Chloride 0.9% 1,000 ML ONE (17:18)
[2021-03-25] MEDS ORDERED: Acetaminophen/Codeine 30-300mg Tablet ONE (18:08)
[2021-03-25 18:45] LABS: Bilirubin Negative (Negative); Blood, Urine Trace (Negative); Glucose, Urine (Dipstick) Negative (Negative); Ketone, Urine Negative (Negative); Leukocyte Negative (Negative); Nitrite Negative (Negative); Protein, Urine (Dipstick) Negative (Neg-Trace); Urobilinogen 0.2 mg/dL (Less than 2); pH, Urine 6.5 (5.0-9.0)
[2021-03-25 18:53] LABS: Clarity SL HAZY (Clear)
[2021-03-25 18:55] LABS: Bacteria/HPF Rare-Few HPF (None Seen); RBC/HPF None Seen HPF (0-3); Squamous Epithelial 0-3 HPF (0-3); WBC/HPF 0-3 HPF (0-3)
[2021-03-25] MEDS ORDERED: Ondansetron PF 4 MG/2 ML Vial IVP PRN (19:30)
[2021-03-25] MEDS ORDERED: Ondansetron ODT 4 MG TAB SL PRN (19:30)
[2021-03-25] MEDS ORDERED: Acetaminophen 325 MG TAB PO PRN (19:30)
[2021-03-25] MEDS ORDERED: Calcium Carbonate 500 MG ChewTAB PO PRN (19:58)
[2021-03-25] MEDS ORDERED: Sodium Chloride 0.65% Nasal 44 ML BOT EA NARE PRN (19:58)
[2021-03-25] MEDS ORDERED: Artificial Tear Sol 15 ML BOT EA EYE PRN (19:58)
[2021-03-25] MEDS ORDERED: Bisacodyl 5 MG TAB PO PRN (19:58)
[2021-03-25] MEDS ORDERED: Senokot S 8.6-50 MG TAB PO PRN (19:58)
[2021-03-25] MEDS ORDERED: Loperamide HCl 2 MG CAP PO PRN ×2 (19:58)
[2021-03-25] MEDS ORDERED: Benzonatate 100 MG CAP PO PRN (19:58)
[2021-03-25] MEDS ORDERED: Bisacodyl 10 MG SUPP PR PRN (19:58)
[2021-03-25] MEDS ORDERED: Eucerin (Mineral Oil/Petrolatum,White) 30 gm Jar TOP PRN (19:58)
[2021-03-25 20:00] VITALS: BMI 29.4
[2021-03-25] MEDS: Sodium Chloride 0.9% 1,000 ML IV SCH (20:09)
[2021-03-25] MEDS ORDERED: Famotidine 20 MG TAB ONE (20:57)
[2021-03-25] MEDS ORDERED: Non-Formulary Item 1 EACH (Latanoprost/Pf [Latanoprost 0.005% Eye Drop] 7.5 ML Drops) FS SCH (21:00)
[2021-03-25 21:09] LABS: Troponin I 0.124 ng/mL (< 0.028)
[2021-03-25] MEDS: Famotidine 20 MG TAB PO SCH (21:12)
[2021-03-25] MEDS: Nebivolol HCl 2.5 MG TAB PO SCH (21:13)
[2021-03-25] MEDS: cloNIDine 0.1 MG TAB PO SCH (21:13)
[2021-03-25] MEDS: hydrALAZINE 25 MG TAB PO SCH (21:13)
[2021-03-25] MEDS: Sulfameth/Trimethoprim DS 800-160mg TAB PO SCH (21:13)
[2021-03-25] MEDS ORDERED: Latanoprost 0.005% Ophth Soln 2.5 ml Bottle EA EYE SCH (22:45)
[2021-03-25 23:24] LABS: Anion Gap 14 mmol/L (10-20); BUN (Urea Nitrogen) 12 mg/dL (9.8-20.1); Calc. Creatinine Clearance 70 mL/min (70-130); Calcium 8.4 mg/dL (7.8-10.44); Carbon Dioxide 18 mmol/L (23-31); Chloride 99 mmol/L (98-107); Glucose 120 mg/dL (83-110); Potassium 5.1 mmol/L (3.5-5.1); Sodium 126 mmol/L (136-145)
[2021-03-25 23:27] LABS: Troponin I 0.163 ng/mL (< 0.028)
[2021-03-26] MEDS: Sodium Chloride 0.9% 1,000 ML IV SCH ×3 (01:01→11:31)
[2021-03-26 01:58] LABS: SARS-CoV-2 NAA Rapid Test Not Detected (NotDetected)
[2021-03-26 03:44] LABS: Troponin I 0.103 ng/mL (< 0.028)
[2021-03-26 03:50] LABS: #Basophils 0.1 thou/uL (0.0-0.2); #Eosinphils 0.2 thou/uL (0.0-0.7); #Lymphocytes 2.3 thou/uL (1.20-3.40); #Monocytes 1.3 thou/uL (0.11-0.59); #Neutrophils 13.6 thou/uL (1.40-6.50); %Basophils 0.7 % (0.0-1.0); %Eosinophils 0.9 % (0.0-10.0); %Lymphocytes 13.2 % (21.0-51.0); %Monocytes 7.3 % (0.0-10.0); %Neutrophils 77.9 % (42.0-75.0); Anisocytosis MODERATE=16-30 cells (100X) (0-5/hpf); Burr Cells MODERATE= 6-15 cells (100X) (0-1/hpf); Hypochromia MODERATE=16-30 cells (100X) (0-5/hpf); Large Platelets SLIGHT; MDiff Complete? YES; Mean Corpuscular HGB CONC 30.5 g/dL (32.0-36.0); Mean Corpuscular Volume 72.2 fL (78.0-98.0); Microcytosis SLIGHT = 6-15 cells (100X) (0-5/hpf); Ovalocytes SLIGHT = 2-5 cells (100X) (0-1/hpf); Platelet Count 339 thou/uL (130-400); Platelet Morphology Comment Appears Adequate; RBC Distribution Width 13.6 % (11.5-14.5); Red Blood Cell (RBC) Count 4.56 mill/uL (4.20-5.40); Tear Drops SLIGHT = 2-5 cells (100X) (0-1/hpf); White Blood Cell (WBC) Count 17.5 thou/uL (4.8-10.8)
[2021-03-26 05:29] LABS: Anion Gap 11 mmol/L (10-20); BUN (Urea Nitrogen) 12 mg/dL (9.8-20.1); Calc. Creatinine Clearance 71 mL/min (70-130); Calcium 8.3 mg/dL (7.8-10.44); Carbon Dioxide 19 mmol/L (23-31); Chloride 104 mmol/L (98-107); Glucose 103 mg/dL (83-110); Potassium 5.4 mmol/L (3.5-5.1); Sodium 129 mmol/L (136-145)
[2021-03-26] MEDS ORDERED: Levothyroxine Sodium 112 MCG TAB PO SCH (06:00)
[2021-03-26 07:27] LABS: Troponin I 0.069 ng/mL (< 0.028)
[2021-03-26] MEDS ORDERED: Pregabalin 50 MG CAP PO SCH (09:00)
[2021-03-26] MEDS ORDERED: SUMAtriptan Succinate 50 MG TAB PO PRN (09:00)
[2021-03-26] MEDS ORDERED: Losartan Potassium 50 MG TAB PO SCH (09:00)
[2021-03-26] MEDS ORDERED: Enoxaparin Sodium 40 MG/0.4 ML SYRINGE SC SCH (09:00)
[2021-03-26] MEDS: cloNIDine 0.1 MG TAB PO SCH (09:07)
[2021-03-26] MEDS: hydrALAZINE 25 MG TAB PO SCH ×2 (09:08→15:48)
[2021-03-26] MEDS: Famotidine 20 MG TAB PO SCH ×2 (09:08→10:18)
[2021-03-26] MEDS: Nebivolol HCl 2.5 MG TAB PO SCH (09:09)
[2021-03-26] MEDS: Sulfameth/Trimethoprim DS 800-160mg TAB PO SCH (09:10)
[2021-03-26] MEDS ORDERED: Ondansetron ODT 4 MG TAB PO PRN (12:33)
[2021-03-26 15:44] VITALS: BP 129/68
[2021-03-26 16:23] VITALS: TEMP 98
[2021-03-26] MEDS ORDERED: Acetaminophen/Codeine 30-300mg Tablet PO PRN ×2 (18:02)
[2021-03-26] MEDS ORDERED: Acetaminophen 500 MG TAB PO PRN (18:03)
[2021-03-26] MEDS ORDERED: hydrALAZINE 25 MG TAB PO SCH (21:00)
[2021-03-26] MEDS ORDERED: Latanoprost 0.005% Ophth Soln 2.5 ml Bottle EA EYE SCH ×2 (21:00)
[2021-03-27] MEDS ORDERED: Megestrol Acetate 800 MG/20 ML UDCUP PO SCH (09:00)
== END 2021-03-26 19:01 | disposition swing bed (61) ==
LOC: NAV ERS 14:31 → NAV ACUTE 18:30
PROVIDERS: ADMIT Family Medicine; ATTEND Family Medicine
DX: E87.1 Hypo-osmolality and hyponatremia (principal); E87.5 Hyperkalemia; D72.829 Elevated white blood cell count, unspecified; M06.9 Rheumatoid arthritis, unspecified; E03.9 Hypothyroidism, unspecified; I25.10 Atherosclerotic heart disease of native coronary artery without angina pectoris; I48.91 Unspecified atrial fibrillation; J45.909 Unspecified asthma, uncomplicated; K21.9 Gastro-esophageal reflux disease without esophagitis; R77.8 Other specified abnormalities of plasma proteins; I12.9 Hypertensive chronic kidney disease with stage 1 through stage 4 chronic kidney disease, or unspecified chronic kidney disease; N18.9 Chronic kidney disease, unspecified; D63.1 Anemia in chronic kidney disease; G25.81 Restless legs syndrome; Z79.82 Long term (current) use of aspirin; Z79.899 Other long term (current) drug therapy; Z88.0 Allergy status to penicillin; Z95.5 Presence of coronary angioplasty implant and graft; Z20.822 Contact with and (suspected) exposure to COVID-19
CPT/HCPCS: 36415; 71045; 80048; 80053; 81003; 81015; 82550; 82553; 83735; 83880; 84484; 85025; 93005; 96372; 96374; G0378; J1650; J2405; J7050; Q0162; U0002

== ENCOUNTER 2021-03-26 18:58 | Inpatient (IN) | payer MEDICARE, OTHER ==
[2021-03-26] MEDS ORDERED: Senokot S 8.6-50 MG TAB PO PRN (19:23)
[2021-03-26] MEDS ORDERED: Sodium Chloride 0.65% Nasal 44 ML BOT EA NARE PRN (19:23)
[2021-03-26] MEDS ORDERED: Ondansetron ODT 4 MG TAB PO PRN (19:23)
[2021-03-26] MEDS ORDERED: Eucerin (Mineral Oil/Petrolatum,White) 30 gm Jar TOP PRN (19:23)
[2021-03-26] MEDS ORDERED: Cepastat Lozenges 1 LOZ PO PRN (19:23)
[2021-03-26] MEDS ORDERED: Loperamide HCl 2 MG CAP PO PRN ×4 (19:23)
[2021-03-26] MEDS ORDERED: Benzonatate 100 MG CAP PO PRN (19:23)
[2021-03-26] MEDS ORDERED: Bisacodyl 5 MG TAB PO PRN (19:23)
[2021-03-26] MEDS ORDERED: Artificial Tear Sol 15 ML BOT EA EYE PRN (19:23)
[2021-03-26] MEDS ORDERED: SUMAtriptan Succinate 50 MG TAB PO PRN (20:30)
[2021-03-26] MEDS: Nebivolol HCl 2.5 MG TAB PO SCH (20:57)
[2021-03-26] MEDS: Senokot S 8.6-50 MG TAB PO SCH (20:57)
[2021-03-26] MEDS: hydrALAZINE 25 MG TAB PO SCH (20:58)
[2021-03-26] MEDS: Sulfameth/Trimethoprim DS 800-160mg TAB PO SCH (20:58)
[2021-03-26] MEDS: Latanoprost 0.005% Ophth Soln 2.5 ml Bottle EA EYE SCH (20:58)
[2021-03-26] MEDS: Famotidine 20 MG TAB PO SCH (20:58)
[2021-03-27] MEDS: Acetaminophen/Codeine 30-300mg Tablet PO PRN ×3 (05:36→21:29)
[2021-03-27] MEDS: Levothyroxine Sodium 112 MCG TAB PO SCH (05:36)
[2021-03-27 06:30] LABS: Anion Gap 15 mmol/L (10-20); BUN (Urea Nitrogen) 16 mg/dL (9.8-20.1); Calc. Creatinine Clearance 56 mL/min (70-130); Carbon Dioxide 13 mmol/L (23-31); Chloride 100 mmol/L (98-107); Glucose 82 mg/dL (83-110); Potassium 4.8 mmol/L (3.5-5.1); Sodium 123 mmol/L (136-145)
[2021-03-27 06:35] LABS: Hemoglobin 9.8 g/dL (12.0-16.0); Mean Corpuscular HGB CONC 31.2 g/dL (32.0-36.0); Mean Corpuscular Hemoglobin 22.4 pg (27.0-31.0); Mean Corpuscular Volume 71.7 fL (78.0-98.0); Mean Platelet Volume 7.5 fL (7.4-10.4); Platelet Count 357 thou/uL (130-400); RBC Distribution Width 13.5 % (11.5-14.5); Red Blood Cell (RBC) Count 4.36 mill/uL (4.20-5.40); White Blood Cell (WBC) Count 24.5 thou/uL (4.8-10.8)
[2021-03-27 06:37] LABS: MDiff Complete? YES
[2021-03-27 06:39] LABS: Anisocytosis SLIGHT = 6-15 cells (100X) (0-5/hpf); Band 3 % (5-11); Hypochromia SLIGHT = 6-15 cells (100X) (0-5/hpf); Lymphocytes 10 % (21-51); Microcytosis SLIGHT = 6-15 cells (100X) (0-5/hpf); Monocytes 5 % (0-10); Neutrophil 82 % (42-75); Platelet Morphology Comment Appears Adequate
[2021-03-27] MEDS: Enoxaparin Sodium 40 MG/0.4 ML SYRINGE SC SCH (08:57)
[2021-03-27] MEDS: Famotidine 20 MG TAB PO SCH ×2 (08:58→21:27)
[2021-03-27] MEDS: hydrALAZINE 25 MG TAB PO SCH ×3 (08:58→21:29)
[2021-03-27] MEDS: Megestrol Acetate 800 MG/20 ML UDCUP PO SCH (08:59)
[2021-03-27] MEDS: Losartan Potassium 50 MG TAB PO SCH (08:59)
[2021-03-27] MEDS: Pregabalin 50 MG CAP PO SCH (09:00)
[2021-03-27] MEDS: Nebivolol HCl 2.5 MG TAB PO SCH ×2 (09:00→21:28)
[2021-03-27] MEDS: Senokot S 8.6-50 MG TAB PO SCH ×2 (09:03→21:29)
[2021-03-27] MEDS: Ondansetron ODT 4 MG TAB SL PRN (09:03)
[2021-03-27] MEDS: Sulfameth/Trimethoprim DS 800-160mg TAB PO SCH ×2 (09:04→21:28)
[2021-03-27] MEDS: Latanoprost 0.005% Ophth Soln 2.5 ml Bottle EA EYE SCH (21:28)
[2021-03-28] MEDS: Levothyroxine Sodium 112 MCG TAB PO SCH (05:15)
[2021-03-28] MEDS: Acetaminophen/Codeine 30-300mg Tablet PO PRN (05:44)
[2021-03-28] MEDS: Senokot S 8.6-50 MG TAB PO SCH ×2 (09:08→20:51)
[2021-03-28] MEDS: Losartan Potassium 50 MG TAB PO SCH (09:08)
[2021-03-28] MEDS: Pregabalin 50 MG CAP PO SCH (09:08)
[2021-03-28] MEDS: hydrALAZINE 25 MG TAB PO SCH ×3 (09:09→20:51)
[2021-03-28] MEDS: Nebivolol HCl 2.5 MG TAB PO SCH ×2 (09:09→20:51)
[2021-03-28] MEDS: Sulfameth/Trimethoprim DS 800-160mg TAB PO SCH ×2 (09:09→20:51)
[2021-03-28] MEDS: Enoxaparin Sodium 40 MG/0.4 ML SYRINGE SC SCH (09:09)
[2021-03-28] MEDS: Famotidine 20 MG TAB PO SCH ×2 (09:09→20:50)
[2021-03-28] MEDS: Megestrol Acetate 800 MG/20 ML UDCUP PO SCH (09:10)
[2021-03-28] MEDS: Latanoprost 0.005% Ophth Soln 2.5 ml Bottle EA EYE SCH (20:51)
[2021-03-28] MEDS: Acetaminophen 500 MG TAB PO PRN (23:43)
[2021-03-29] MEDS: Levothyroxine Sodium 112 MCG TAB PO SCH (07:13)
[2021-03-29] MEDS: Pregabalin 50 MG CAP PO SCH (08:25)
[2021-03-29] MEDS: Sulfameth/Trimethoprim DS 800-160mg TAB PO SCH ×2 (08:25→20:39)
[2021-03-29] MEDS: hydrALAZINE 25 MG TAB PO SCH ×3 (08:26→20:39)
[2021-03-29] MEDS: Nebivolol HCl 2.5 MG TAB PO SCH ×2 (08:26→20:39)
[2021-03-29] MEDS: Senokot S 8.6-50 MG TAB PO SCH ×2 (08:26→20:39)
[2021-03-29] MEDS: Acetaminophen/Codeine 30-300mg Tablet PO PRN ×3 (08:27→20:46)
[2021-03-29] MEDS: Megestrol Acetate 800 MG/20 ML UDCUP PO SCH (08:28)
[2021-03-29] MEDS: Losartan Potassium 50 MG TAB PO SCH (08:30)
[2021-03-29] MEDS: Enoxaparin Sodium 40 MG/0.4 ML SYRINGE SC SCH (08:31)
[2021-03-29] MEDS: Famotidine 20 MG TAB PO SCH ×2 (08:31→20:39)
[2021-03-29 09:45] LABS: Bilirubin Negative (Negative); Blood, Urine Negative (Negative); Clarity Slightly Cloudy (Clear); Glucose, Urine (Dipstick) Negative (Negative); Ketone, Urine Negative (Negative); Leukocyte Negative (Negative); Nitrite Negative (Negative); Protein, Urine (Dipstick) Negative (Neg-Trace); Urobilinogen 0.2 mg/dL (Less than 2); pH, Urine 5.5 (5.0-9.0)
[2021-03-29 09:46] LABS: Urine Culture Reflex No No
[2021-03-29] MEDS: Ondansetron ODT 4 MG TAB SL PRN ×2 (14:29→21:04)
[2021-03-29 15:12] LABS: Potassium 4.9 mmol/L (3.5-5.1)
[2021-03-29 15:26] LABS: #Basophils 0.1 thou/uL (0.0-0.2); #Eosinphils 0.1 thou/uL (0.0-0.7); #Lymphocytes 2.1 thou/uL (1.20-3.40); #Monocytes 1.7 thou/uL (0.11-0.59); %Basophils 0.3 % (0.0-1.0); %Eosinophils 0.4 % (0.0-10.0); %Lymphocytes 7.2 % (21.0-51.0); %Monocytes 5.8 % (0.0-10.0); %Neutrophils 86.4 % (42.0-75.0); Anisocytosis SLIGHT = 6-15 cells (100X) (0-5/hpf); Burr Cells SLIGHT = 2-5 cells (100X) (0-1/hpf); Crenated RBC SLIGHT = 1-5 cells (100X) (None Seen); Elliptocytes SLIGHT = 2-5 cells (100X) (0-1/hpf); Hemoglobin 9.6 g/dL (12.0-16.0); MDiff Complete? YES; Mean Corpuscular HGB CONC 31.6 g/dL (32.0-36.0); Mean Corpuscular Hemoglobin 22.5 pg (27.0-31.0); Mean Corpuscular Volume 71.1 fL (78.0-98.0); Mean Platelet Volume 8.2 fL (7.4-10.4); Microcytosis SLIGHT = 6-15 cells (100X) (0-5/hpf); Ovalocytes SLIGHT = 2-5 cells (100X) (0-1/hpf); Platelet Count 420 thou/uL (130-400); Platelet Morphology Comment Appears Increased; Poikilocytosis SLIGHT = 6-15 cells (100X) (0-5/hpf); RBC Distribution Width 13.7 % (11.5-14.5); Red Blood Cell (RBC) Count 4.28 mill/uL (4.20-5.40); Schistocytes SLIGHT = 2-5 cells (100X) (0-1/hpf); White Blood Cell (WBC) Count 28.9 thou/uL (4.8-10.8)
[2021-03-29] MEDS: Dextrose 5 % And 0.9 % NaCl 1,000 ML IV SCH (17:01)
[2021-03-29] MEDS: Latanoprost 0.005% Ophth Soln 2.5 ml Bottle EA EYE SCH (20:38)
[2021-03-29] MEDS ORDERED: Sodium Chloride 0.9% 20 ML ONE (22:19)
[2021-03-30 05:58] LABS: Anion Gap 13 mmol/L (10-20); BUN (Urea Nitrogen) 22 mg/dL (9.8-20.1); Calc. Creatinine Clearance 49 mL/min (70-130); Carbon Dioxide 12 mmol/L (23-31); Chloride 98 mmol/L (98-107); Glucose 112 mg/dL (83-110); Potassium 4.8 mmol/L (3.5-5.1)
[2021-03-30 06:07] LABS: #Basophils 0.1 thou/uL (0.0-0.2); #Eosinphils 0.1 thou/uL (0.0-0.7); #Monocytes 1.4 thou/uL (0.11-0.59); #Neutrophils 20.9 thou/uL (1.40-6.50); %Basophils 0.3 % (0.0-1.0); %Eosinophils 0.3 % (0.0-10.0); %Monocytes 5.7 % (0.0-10.0); %Neutrophils 85.6 % (42.0-75.0); Crenated RBC SLIGHT = 1-5 cells (100X) (None Seen); Hypochromia MODERATE=16-30 cells (100X) (0-5/hpf); MDiff Complete? YES; Mean Corpuscular HGB CONC 30.6 g/dL (32.0-36.0); Mean Corpuscular Hemoglobin 22.6 pg (27.0-31.0); Mean Platelet Volume 7.1 fL (7.4-10.4); Ovalocytes MODERATE= 6-15 cells (100X) (0-1/hpf); Platelet Count 399 thou/uL (130-400); Platelet Morphology Comment Appears Adequate; Poikilocytosis MODERATE=16-30 cells (100X) (0-5/hpf); RBC Distribution Width 14.5 % (11.5-14.5); Target Cells SLIGHT = 2-5 cells (100X) (0-1/hpf); White Blood Cell (WBC) Count 24.4 thou/uL (4.8-10.8)
[2021-03-30 06:13] LABS: Sodium 118 mmol/L (136-145)
[2021-03-30] MEDS: Dextrose 5 % And 0.9 % NaCl 1,000 ML IV SCH ×2 (06:17→16:33)
[2021-03-30] MEDS: Levothyroxine Sodium 112 MCG TAB PO SCH (06:17)
[2021-03-30] MEDS: Acetaminophen/Codeine 30-300mg Tablet PO PRN ×2 (06:27→20:44)
[2021-03-30] MEDS: Ondansetron ODT 4 MG TAB SL PRN ×2 (06:27→20:42)
[2021-03-30] MEDS: Senokot S 8.6-50 MG TAB PO SCH ×2 (09:31→20:53)
[2021-03-30] MEDS: Megestrol Acetate 800 MG/20 ML UDCUP PO SCH (09:31)
[2021-03-30] MEDS: Enoxaparin Sodium 40 MG/0.4 ML SYRINGE SC SCH (09:31)
[2021-03-30] MEDS: Sodium Chloride 1 GM TAB PO SCH ×3 (09:34→20:53)
[2021-03-30] MEDS: hydrALAZINE 25 MG TAB PO SCH ×3 (09:34→20:52)
[2021-03-30] MEDS: Losartan Potassium 50 MG TAB PO SCH (09:34)
[2021-03-30] MEDS: Nebivolol HCl 2.5 MG TAB PO SCH ×2 (09:34→20:52)
[2021-03-30] MEDS: Famotidine 20 MG TAB PO SCH ×2 (09:34→20:53)
[2021-03-30] MEDS: Sulfameth/Trimethoprim DS 800-160mg TAB PO SCH ×2 (09:35→20:54)
[2021-03-30] MEDS: Pregabalin 50 MG CAP PO SCH (09:35)
[2021-03-30] MEDS ORDERED: Promethazine HCl 25 MG/ML VIAL FS PRN (10:40)
[2021-03-30] MEDS: Latanoprost 0.005% Ophth Soln 2.5 ml Bottle EA EYE SCH (20:51)
[2021-03-31] MEDS: Dextrose 5 % And 0.9 % NaCl 1,000 ML IV SCH ×3 (01:41→15:30)
[2021-03-31] MEDS: Levothyroxine Sodium 112 MCG TAB PO SCH (05:17)
[2021-03-31 06:05] LABS: Anion Gap 13 mmol/L (10-20); BUN (Urea Nitrogen) 19 mg/dL (9.8-20.1); Calc. Creatinine Clearance 65 mL/min (70-130); Carbon Dioxide 13 mmol/L (23-31); Chloride 102 mmol/L (98-107); Glucose 117 mg/dL (83-110); Potassium 4.9 mmol/L (3.5-5.1); Sodium 123 mmol/L (136-145)
[2021-03-31 06:18] LABS: #Basophils 0.1 thou/uL (0.0-0.2); #Eosinphils 0.2 thou/uL (0.0-0.7); #Lymphocytes 2.4 thou/uL (1.20-3.40); #Monocytes 1.8 thou/uL (0.11-0.59); #Neutrophils 19.2 thou/uL (1.40-6.50); %Basophils 0.5 % (0.0-1.0); %Lymphocytes 10.3 % (21.0-51.0); %Monocytes 7.4 % (0.0-10.0); %Neutrophils 80.9 % (42.0-75.0); Band 15 % (5-11); Burr Cells SLIGHT = 2-5 cells (100X) (0-1/hpf); Eosinophils 1 % (0-10); Hemoglobin 9.5 g/dL (12.0-16.0); Hypochromia MODERATE=16-30 cells (100X) (0-5/hpf); Lymphocytes 17 % (21-51); MDiff Complete? YES; Mean Corpuscular HGB CONC 30.7 g/dL (32.0-36.0); Mean Corpuscular Hemoglobin 22.2 pg (27.0-31.0); Mean Corpuscular Volume 72.3 fL (78.0-98.0); Mean Platelet Volume 7.2 fL (7.4-10.4); Metamyelocyte 1 % (0-0); Monocytes 1 % (0-10); Neutrophil 65 % (42-75); Ovalocytes MODERATE= 6-15 cells (100X) (0-1/hpf); Platelet Count 457 thou/uL (130-400); Platelet Morphology Comment Appears Increased; Poikilocytosis MARKED = >30 cells (100X) (0-5/hpf); RBC Distribution Width 14.1 % (11.5-14.5); Red Blood Cell (RBC) Count 4.28 mill/uL (4.20-5.40); White Blood Cell (WBC) Count 23.7 thou/uL (4.8-10.8)
[2021-03-31 06:19] VITALS: BMI 31.6
[2021-03-31] MEDS: Famotidine 20 MG TAB PO SCH (09:08)
[2021-03-31] MEDS: hydrALAZINE 25 MG TAB PO SCH ×2 (09:08→15:18)
[2021-03-31] MEDS: Losartan Potassium 50 MG TAB PO SCH (09:10)
[2021-03-31] MEDS: Nebivolol HCl 2.5 MG TAB PO SCH (09:10)
[2021-03-31] MEDS: Megestrol Acetate 800 MG/20 ML UDCUP PO SCH (09:10)
[2021-03-31] MEDS: Pregabalin 50 MG CAP PO SCH (09:11)
[2021-03-31] MEDS: Senokot S 8.6-50 MG TAB PO SCH (09:12)
[2021-03-31] MEDS: Sodium Chloride 1 GM TAB PO SCH ×2 (09:12→15:18)
[2021-03-31] MEDS: Sulfameth/Trimethoprim DS 800-160mg TAB PO SCH (09:13)
[2021-03-31] MEDS: Acetaminophen 500 MG TAB PO PRN (09:13)
[2021-03-31] MEDS: Ondansetron ODT 4 MG TAB SL PRN (09:13)
[2021-03-31] MEDS: Enoxaparin Sodium 40 MG/0.4 ML SYRINGE SC SCH (09:17)
[2021-03-31 09:19] VITALS: BP 127/70; TEMP 98.8
== END 2021-03-31 16:29 | disposition short-term general hospital (02) | DRG 948 ==
LOC: NAV ACUTE 18:58
PROVIDERS: ADMIT Family Medicine; ATTEND Family Medicine
DX: R53.1 Weakness (principal); E87.1 Hypo-osmolality and hyponatremia; N39.0 Urinary tract infection, site not specified; E87.5 Hyperkalemia; D72.829 Elevated white blood cell count, unspecified; M06.9 Rheumatoid arthritis, unspecified; E03.9 Hypothyroidism, unspecified; I25.10 Atherosclerotic heart disease of native coronary artery without angina pectoris; I48.91 Unspecified atrial fibrillation; J45.909 Unspecified asthma, uncomplicated; N18.9 Chronic kidney disease, unspecified; D50.9 Iron deficiency anemia, unspecified; K21.9 Gastro-esophageal reflux disease without esophagitis; Z95.5 Presence of coronary angioplasty implant and graft; Z98.890 Other specified postprocedural states; Z79.82 Long term (current) use of aspirin; Z79.899 Other long term (current) drug therapy
CPT/HCPCS: 36415; 71045; 80048; 81001; 85025; J1650; J7042; Q0162